=== PATIENT | female | born 1985 | race Caucasian/White ===

== ENCOUNTER 2024-02-13 14:23 | Emergency (ER) | payer SELFPAY ==
--- NOTE | ~2024-02-13 | US_ITS ---
EXAMINATION: US pelvic complete w TV DATE: 02/13/2024 18:15 INDICATION: Abdominal pain. TECHNIQUE: Multiple transabdominal and transvaginal sonographic images of the pelvis were obtained. COMPARISON: CT abdomen and pelvis 02/13/2024 FINDINGS: TRANSABDOMINAL ULTRASOUND: The uterus measures 9.6 x 3.9 x 5.2 cm. There is physiologic free fluid in the pelvis. TRANSVAGINAL ULTRASOUND: The endometrial complex measures 11 mm in thickness. There are nabothian cysts in the cervix. The rig ht ovary measures 3.8 x 2.8 x 3.6 cm. There is a 2.5 cm hemorrhagic cyst in right ovary. The left ova ry measures 2.3 x 2.3 x 1.6 cm. There is normal vascular flow in the ovaries. IMPRESSION: 1. 2.5 cm hemorrhagic cyst in right ovary. Reviewed, dictated and finalized at location A. UP / OPERATOR
--- NOTE | ~2024-02-13 | CT_ITS ---
EXAMINATION: CT abdomen pelvis w con DATE: 02/13/2024 15:58 INDICATION: Abdominal pain. TECHNIQUE: Computed tomography (CT) of the abdomen and pelvis was performed with 100 mL Omnipaque 350 intravenous contrast. Automated exposure control and iterative reconstruction technique were employe d. The dose-length product was 771.77 mGy-cm. COMPARISON: None. FINDINGS: The visualized portions of the lung bases demonstrate minimal atelectasis. No pleural effus ion. The heart size is normal. No pericardial effusion. Calcifications in the liver are consistent wi th old granulomatous disease. The gallbladder, spleen, pancreas, and adrenal glands are normal. There are cysts in the kidneys measuring up to 1.8 cm on the right. There is a 1 mm stone in right kidney. There are 4 mm and 2 mm stones in left kidney. There is diverticulosis of the colon without evidence of diverticulitis. The appendix is normal. There is a small volume of ascites. The uterus demonstrat es nabothian cysts in the cervix. There is a 2.7 cm dominant follicle in right ovary. There are no pa thologically enlarged lymph nodes. There is mild thoracic and lumbar spondylosis. IMPRESSION: 1. Small volume of pelvic ascites. Reviewed, dictated and finalized at location A. DATA ADMIN
[2024-02-13 14:35] VITALS: BP 157/95; PULSE 113; RESP 18; TEMP 36.9; O2SAT 100
--- NOTE | 2024-02-13 14:45 | ECG_ITS ---
Test Date: 2024-02-13 14:54:27 Measurements Intervals [place] Rate: 86 P: 38 CA: 108 QRS: 15 QRSD: 81 T: 26 QT: 363 QTc: 436 Interpretive Statements SINUS RHYTHM WITH SHORT CA INTERVAL No previous ECG available for comparison Electronically Signed On 02-13-2024 16:21:17 UNDERLINER by Sruthi Abreu M.D.
--- NOTE | 2024-02-13 14:48 | ED.ABDPAIN ---
HPI - Abdominal Pain General Chief Complaint: Abdominal Pain Stated Complaint: abd pain Time Seen by Provider: 02/13/24 14:40 Focused HPI: Patient is a 38-year-old female who presents to the ER with abdominal pain. She reports her symptoms started earlier today with an itch, numbness and tingling in her hands. Patient reports she became panicky after GENERAL: Well-appearing, well-nourished, and in no acute distress. HEAD: Normocephalic, atraumatic. CHEST: Clear to auscultation. ?No respiratory distress. HEART: Regular rate and rhythm.? NEURO: ?Alert and oriented x3. Patient screened in triage and initial orders placed.? ?Additional care and disposition to be based upon?diagnostic testing and treatment. Related Data Allergies Allergy/AdvReac Type Severity Reaction Status Date / Time No Known Allergies Allergy Verified 02/13/24 14:42 Course Vital Signs Vital signs: Vital Signs Temperature 36.9 C 02/13/24 14:35 Pulse Rate 113 H 02/13/24 14:35 Respiratory Rate 18 02/13/24 14:35 Blood Pressure 157/95 H 02/13/24 14:35 Pulse Oximetry 100 02/13/24 14:35 Oxygen Delivery Room Air 02/13/24 14:35 Temperature 36.9 C 02/13/24 14:35 Pulse Rate 113 H 02/13/24 14:35 Respiratory Rate 18 02/13/24 14:35 Blood Pressure 157/95 H 02/13/24 14:35 Pulse Oximetry 100 02/13/24 14:35 Oxygen Delivery Room Air 02/13/24 14:35 Discharge Plan Discharge Instructions: Antibiotic Form Patient Language: Greenlandic Follow-up/Referrals: PHYSICIAN,CONSTRUCTION SUPERINTENDENT [Primary Care Provider] -
[2024-02-13 15:01] LABS: BEDSIDEPREGUCG Negative (Negative)
[2024-02-13 15:22] LABS: Lactic Acid Reflex 1.2 mmol/L (0.7-2.0)
[2024-02-13 15:28] LABS: Basophils Percent Auto 0.2 % (0.2-1.2); Eosinophils Percent Auto 0.1 % (0-4.4); Hematocrit 43.4 % (37.0-47.0); Hemoglobin 14.6 g/dL (12.0-15.0); Immature Granulocyte Absolute 0.09 K/mm3 (0.00-0.031); Immature Granulocyte Percent A 0.5 % (0-0.5); Lymphocytes Absolute Auto 1.95 K/mm3 (0.9-3.2); Lymphocytes Percent Auto 11.2 % (18.3-44.2); Mean Corpuscular HGB Conc 33.6 g/dl (32-36); Mean Corpuscular Hemoglobin 30.8 pg (26-34); Mean Corpuscular Volume 91.6 fl (80-100); Mean Platelet Volume 10.2 fl (7.4-10.4); Monocytes Absolute Auto 0.5 K/mm3 (0.1-0.6); Monocytes Percent Auto 3.1 % (2.6-8.5); Neutrophils Absolute Auto 14.8 K/mm3 (1.3-6.7); Neutrophils Percent Auto 84.9 % (45.5-73.1); Platelet Count Result 304 k/mm3 (150-375); Red Blood Count 4.74 M/mm3 (4.2-5.4); Red Cell Distribution Width 12.3 % (11.5-14.5); White Blood Count 17.5 K/mm3 (4.5-10.0)
[2024-02-13 15:34] LABS: Troponin I < 0.012 ng/mL (0.000-0.034)
[2024-02-13 15:35] LABS: INR 0.9; Prothrombin Time 12.5 Seconds (11.1-14.7)
[2024-02-13 15:36] LABS: Partial Thromboplastin Time 26.2 Seconds (22.3-36.8)
[2024-02-13 15:39] LABS: Alanine Aminotransferase 31 U/L (6-35); Albumin Level 4.6 g/dL (3.5-5.1); Alkaline Phosphatase 87 U/L (38-126); Anion Gap 7 mmol/L (4-12); Aspartate Amino Transferase 35 U/L (14-36); Bilirubin,Total 0.8 mg/dL (0.2-1.3); Blood Urea Nitrogen 9 mg/dL (7-17); Calcium 9.2 mg/dL (8.4-10.2); Carbon Dioxide 23 mmol/L (22-30); Chloride 105 mmol/L (98-107); Estimated CRCL calculation 130 ml/min; Estimated Glomerular Filt Rate > 60; Glucose 112 mg/dL (65-110); Potassium 3.8 mmol/L (3.4-5.0); Sodium 135 mmol/L (137-145)
[2024-02-13 15:44] LABS: Lipase 129 U/L (23-300)
[2024-02-13 16:15] LABS: Add Urine Microscopic? YES; Appearance Urine Clear (Clear); Bacteria Urine 1+ /hpf; Bilirubin Urine Negative (Negative); Blood Urine Negative (Negative); Color Urine Dark Yellow (Yellow); Glucose Urine UA Negative (Negative); Ketones Urine 1+ mg/dL (Negative); Leukocyte Esterase Ur Negative LEU/UL (Negative); Nitrate Urine Negative (Negative); Non Pathogenic Casts 0-2; Protein Urine 1+ mg/dL (Negative); RBC Urine 0-2 /hpf (0-2); Specific Grav Ur 1.023 (1.001-1.035); Squamous Epithelial Cell Urine Few /hpf (Few); Urobilinogen Urine 0.2 mg/dL (<2.0); WBC Urine 0-5 /hpf (0-3); pH Urine 5.5 (5.0-9.0)
--- NOTE | 2024-02-13 17:17 | ED.ABDPAIN ---
HPI - Abdominal Pain General Chief Complaint: Abdominal Pain Stated Complaint: abd pain Time Seen by Provider: 02/13/24 14:40 Source: patient Mode of arrival: ambulatory Limitations: no limitations History of Present Illness HPI narrative: This is a 38-year-old female who presents to the ED for chief complaint of lower abdominal pain that started this morning. The pain was associated with tingling of the extremities and episodes of nausea with vomiting. Reports that the pain started lower and is now more periumbilical. She states that she has had similar pains in the past with ovarian cyst rupture. Denies fevers, chills, diarrhea, GI bleeding symptoms, urinary symptoms, flank pain, syncope or lightheadedness. Related Data Allergies Allergy/AdvReac Type Severity Reaction Status Date / Time No Known Allergies Allergy Verified 02/13/24 14:42 Review of Systems Review of Systems: All systems as dictated in HPI Exam Narrative: GENERAL: Well-appearing, well-nourished, and in no acute distress. HEAD: Normocephalic, atraumatic. EYES: PERRLA and EOMI. ENT: Nares clear, no rhinorrhea or epistaxis. Mucous membranes moist. Oropharynx without tonsillar hypertrophy exudate or other lesions. NECK: Supple. No adenopathy or masses. CHEST: No respiratory distress. Clear to auscultation. No wheezes rales or rhonchi HEART: Regular rate and rhythm. No murmur heard. Normal peripheral pulses. ABDOMEN: Mild left lower quadrant tenderness. Soft, otherwise nontender, nondistended, normal active bowel sounds. Negative flank tenderness bilaterally MSK: Normal range of motion. No edema. SKIN: Warm, dry, no rash. NEURO: Alert and oriented x4. No focal deficits. PSYCH: Normal mood and affect. Course Vital Signs Vital signs: Vital Signs Temperature 98.4 F 02/13/24 14:35 Pulse Rate 113 H 02/13/24 14:35 Respiratory Rate 18 02/13/24 14:35 Blood Pressure 157/95 H 02/13/24 14:35 Pulse Oximetry 100 02/13/24 14:35 Oxygen Delivery Room Air 02/13/24 14:35 Temperature 98.2 F 02/13/24 20:30 Pulse Rate 79 02/13/24 20:30 Respiratory Rate 20 02/13/24 20:30 Blood Pressure 134/87 02/13/24 20:30 Pulse Oximetry 98 02/13/24 20:30 Oxygen Delivery Room Air 02/13/24 14:35 MDM - Abdominal Pain MDM Narrative Medical decision making narrative: This is a 38-year-old female who presents to the ED for chief complaint of lower abdominal pain with N/V.. Vitals show initial tachycardia but otherwise normal. Exam is remarkable for lower abdominal tenderness. Patient was initially seen in triage by provider and workup was started there. Lab work showing showing elevated white count of 17.5, suspect acute phase reaction with vomiting. CMP unremarkable. Troponin normal. Urinalysis unremarkable other than slight dehydration. Ultrasound transvaginal: IMPRESSION: 1. 2.5 cm hemorrhagic cyst in right ovary. CT abdomen pelvis with IV contrast: IMPRESSION: 1. Small volume of pelvic ascites. Overall presentation is most likely consistent with ruptured hemorrhagic ovarian cyst. She was given Toradol which did have some initial relief however still was having pain some morphine was given. On re-evaluation she is feeling better. Patient will be discharged in stable condition. Supportive measures discussed and return precautions given. Patient is understanding and agreeable with plan for discharge with PCP follow-up. Differential Diagnosis Differential diagnosis: Likely abdominal pain, diverticulitis, gastroenteritis, pancreatitis, small bowel obstruction and other (Ovarian torsion) Lab Data 02/13/24 15:01 02/13/24 15:01 Labs: Lab Results 02/13/24 02/13/24 Range/Units 15:00 15:01 WBC 17.5 H (4.5-10.0) K/mm3 RBC 4.74 (4.2-5.4) M/mm3 Hgb 14.6 (12.0-15.0) g/dL Hct 43.4 (37.0-47.0) % MCV 91.6 (80-100) fl MCH 30.8 (26-34) pg MCHC 33.6 (32-36) g/dl RDW 12.3 (11.5-14.5) % Plt Count 304 (150-375) k/mm3 MPV 10.2 (7.4-10.4) fl Immature Gran % (Auto) 0.5 (0-0.5) % Neut % (Auto) 84.9 H (45.5-73.1) % Lymph % (Auto) 11.2 L (18.3-44.2) % [place] % (Auto) 3.1 (2.6-8.5) % Eos % (Auto) 0.1 (0-4.4) % Baso % (Auto) 0.2 (0.2-1.2) % Lymph # (Auto) 1.95 (0.9-3.2) K/mm3 [place] # (Auto) 0.5 (0.1-0.6) K/mm3 Eos # (Auto) 0.0 (0-0.3) K/mm3 Baso # (Auto) 0.0 (0.0-0.1) K/mm3 Abs Immat Gran (auto) 0.09 H (0.00-0.031) K/mm3 Absolute Neuts (auto) 14.8 H (1.3-6.7) K/mm3 Absolute Nucleated RBC 0.000 (0.0-0.012) K/mm3 Nucleated RBC % 0.0 (0.0-0.2) % PT 12.5 (11.1-14.7) Seconds INR 0.9 APTT 26.2 (22.3-36.8) Seconds Sodium 135 L (137-145) mmol/L Potassium 3.8 (3.4-5.0) mmol/L Chloride 105 (98-107) mmol/L Carbon Dioxide 23 (22-30) mmol/L Anion Gap 7 (4-12) mmol/L BUN 9 (7-17) mg/dL Creatinine 0.60 L (0.7-1.0) mg/dL Estim Creat Clear Calc 130 ml/min Estimated GFR > 60 (59 - ) Glucose 112 H (65-110) mg/dL Lactic Acid 1.2 (0.7-2.0) mmol/L Calcium 9.2 (8.4-10.2) mg/dL Total Bilirubin 0.8 (0.2-1.3) mg/dL AST 35 (14-36) U/L ALT 31 (6-35) U/L Alkaline Phosphatase 87 (38-126) U/L Troponin I < 0.012 (0.000-0.034) ng/mL Total Protein 8.0 (6.3-8.2) g/dL Albumin 4.6 (3.5-5.1) g/dL Lipase 129 (23-300) U/L Urine Color Dark yellow (Yellow) Urine Appearance Clear (Clear) Urine pH 5.5 (5.0-9.0) Ur Specific Leopold 1.023 (1.001-1.035) Urine Protein 1+ H (Negative) mg/dL Urine Glucose (UA) Negative (Negative) mg/dL Urine Ketones 1+ H (Negative) mg/dL Ur Blood (Man) Negative (Negative) Urine Nitrate Negative (Negative) Urine Bilirubin Negative (Negative) Urine Urobilinogen 0.2 (<2.0) mg/dL Leukocyte Esterase Rfl Negative (Negative) DENNIS/UL Urine RBC 0-2 (0-2) /hpf Urine WBC 0-5 (0-3) /hpf Ur Squamous Epith Cells Few (Few) /hpf Urine Bacteria 1+ H /hpf Urine Casts 0-2 POC Urine HCG, Qual Negative (Negative) Imaging Data Radiologist's impression: ITS Impressions Abdomen/Pelvis CT 02/13/24 15:59 IMPRESSION: 1. Small volume of pelvic ascites. Pelvic/Transvag US 02/13/24 18:19 IMPRESSION: 1. 2.5 cm hemorrhagic cyst in right ovary. Discharge Plan Discharge Clinical Impression: Hemorrhagic cyst of ovary Patient Disposition: Home, Self-Care Condition: Stable Instructions: Antibiotic Form Additional Instructions: Your evaluated in the ER for abdominal pain. Your workup today does show a bleeding ovarian cyst. Please follow-up closely with Ob regarding this issue. Take Toradol for pain control. Pain should start to wean off the next 48 hours. Not take other NSAIDs with Toradol. You can take Tylenol with Toradol. If you have any new or worsening symptoms please return to the ER for further evaluation. Patient Language: Swazi Prescriptions: New ketorolac 10 mg tablet 10 mg PO Q8H PRN (Reason: pain) Qty: 15 0RF Rx Instructions: maximum total duration of 5 days from all oral, intranasal, or parenteral formulations Follow-up/Referrals: PHYSICIAN,METROLOGY MANAGER [Primary Care Provider] - Stand Alone Forms: Work/School Release IP Time of Disposition: 18:46
--- NOTE | 2024-02-13 17:56 | PC.NURSE ---
Pt. still at imaging. Will administer ordered meds when pt. returns.
[2024-02-13] MEDS: KETOROLAC 30 MG/ML VIAL (*BKC) IV PUSH (18:10)
[2024-02-13] MEDS: ONDANSETRON INJ 4 MG/2 ML VIAL IV PUSH (18:10)
[2024-02-13 18:14] VITALS: BP 152/87; PULSE 76; RESP 16; O2SAT 99
[2024-02-13] MEDS: ACETAMINOPHEN 500 MG TABLET 1000 MG PO (19:54)
[2024-02-13] MEDS: MORPHINE SULFATE (*CRX) 4 MG/ML INJ IV PUSH (19:55)
[2024-02-13 20:30] VITALS: BP 134/87; PULSE 79; RESP 20; TEMP 36.8; O2SAT 98
== END 2024-02-13 20:30 | disposition home or self-care (01) ==
PROVIDERS: Registered Nurse; Emergency Provider Physician Assistant
DX: N83.201 Unspecified ovarian cyst, right side (principal)
CPT/HCPCS: 36415; 74177; 76830; 76856; 80053; 81001; 81025; 83605; 83690; 84484; 85025; 85610; 85730; 93005; 96374; 96375; 99284; A9270; J1885; J2270; J2405; Q9967

== ENCOUNTER 2024-08-29 11:20 | Emergency (ER) | payer SELFPAY ==
--- NOTE | ~2024-08-29 | XR_ITS ---
EXAMINATION: XR chest 2V DATE: 08/29/2024 11:53 INDICATION: Upper respiratory tract infection. Right-sided chest pain. TECHNIQUE: PA and lateral views of the chest were obtained. COMPARISON: None FINDINGS: The lungs are clear with no focal airspace opacities, pulmonary edema, pleural effusion or pneumothor ax. The cardiomediastinal silhouette is normal. Visualized bones and soft tissues are unremarkable. IMPRESSION: 1. Normal chest radiograph. Reviewed, dictated and finalized at location B. IMPRESSION: 1. Normal chest radiograph.
[2024-08-29 11:22] VITALS: BP 156/107; PULSE 84; RESP 20; TEMP 36.8; O2SAT 100
--- OUTSIDE RECORDS SUMMARY | 2024-08-29 11:24 | XMS_ITS | Clinical Summary ---
Author Organization [facility] Address [address] [place] [address] Care Team Providers Care Black Studies Professor Name Role Phone No, Physician Primary Care Provider [phone] Allergies No known active allergies Social History Tobacco Use Types Packs/Day Years Used Date Smoking Tobacco: Never Assessed Personal Safety Answer Date Recorded Getting School Help Needed Not on file 06/10 Comments Unknown Sex and Gender Information Value Date Recorded Sex Assigned at Not on file Legal Sex Female 12:50 PM CDT Gender Identity Not on file Sexual Orientation Not on file Last Filed Vital Signs Vital Sign Reading Time Taken Comments Blood Pressure 127/89 05/24/2022 3:26 PM CDT Pulse 92 05/24/2022 3:26 PM CDT Temperature 36.7 C (98.1 F) 05/24/2022 3:26 PM CDT Respiratory Rate 18 05/24/2022 3:26 PM CDT Oxygen Saturation 99% 05/24/2022 3:26 PM CDT Inhaled Oxygen Concentration - - Weight 91.6 kg (201 lb 15.1 oz) 023 12:54 PM CDT Height 170.2 cm (5' 7) 05/24/2022 12:5 4 PM CDT Body Mass Index 31.63 05/24/2022 12:54 PM CDT Plan of Treatment Health Maintenance Due Date Last Done Comments Cervical Cancer Screening 1987 Depression Screening 1987 Hepatitis C Screening 1987 DTaP/Tdap/Td Vaccine (1 - Tdap) 06/11/1998 Varicella Vaccines (1 of 2 - 13+ 2-dose series) 06/11/2000 Hepatitis B Screening 06/11/2005 Regular Well Visit/Exam 18-64 06/11/2005 Influenza Vaccine (Season Ended) 2024 HPV Vaccines Aged Out No longer eligi ble based on patient's age to complete this topic Pneumococcal vaccine <65 Aged Out No longer eligible based on patient's age to complete this topic Care Teams Black Studies Professor Relationship Specialty Start Date End Date No, Physician PCP - General 05/24/22
--- OUTSIDE RECORDS SUMMARY | 2024-08-29 11:24 | XMS_ITS | Referral Summary ---
Author Organization [facility] Address [address] [place] [address] Care Team Providers Care Sustainability Analyst Name Role Phone No, Physician Primary Care Provider [phone] Allergies No known active allergies Social History [...] 05/24/2022 12:54 PM CDT Plan of Treatment Not on file Care Teams Sustainability Analyst Relationship Specialty Start Date End Date Bryanna Physician PCP - General 05/24/22
--- NOTE | 2024-08-29 12:19 | ED_ITS ---
HPI - URI/Sore Throat General Chief Complaint: Upper Respiratory Infection Stated Complaint: sore throat Time Seen by Provider: 08/29/24 12:08 Source: patient Mode of arrival: ambulatory Limitations: no limitations History of Present Illness HPI Narrative: 39 years old white female came to the ED complaining sore throat, nasal and postnasal discharge, dry cough started 10 days ago. She she denies sick sick contact. She denies any fever, chills, nausea, vomiting or chest. Patient works in public Patient been using amoxicillin 500 mg once a day for the last 7 days, left over antibiotic Related Data Allergies Allergy/AdvReac Type Severity Reaction Status Date / Time No Known Allergies Allergy Verified 02/13/24 14:42 Review of Systems Review of Systems: All systems reviewed & are unremarkable except as noted in HPI and below Exam Narrative: General appearance: Well-developed, well-nourished Skin: Normal color Head: Normocephalic, nontraumatic Eyes: Clear conjunctiva ENT: Oropharynx normal, ears normal, nose normal Neck: Supple, nontender Chest and respiratory: Airway patent, no respiratory distress, no accessory muscle use Heart: Regular rate/rhythm Abdomen: Soft, nontender, no organomegaly, quiet bowel sounds Vascular: Normal peripheral pulses, normal capillary refill. Musculoskeletal: Normal range of motion, nontender back Neurologic: Alert and oriented ?3, CASINO INVESTIGATOR is normal as tested, no gross motor deficit Course Vital Signs Vital signs: Vital Signs Temperature 36.8 C 08/29/24 11:22 Pulse Rate 84 08/29/24 11:22 Respiratory Rate 20 08/29/24 11:22 Blood Pressure 156/107 H 08/29/24 11:22 Pulse Oximetry 100 08/29/24 11:22 Oxygen Delivery Room Air 08/29/24 11:22 Temperature 36.8 C 08/29/24 11:22 Pulse Rate 84 08/29/24 11:22 Respiratory Rate 20 08/29/24 11:22 Blood Pressure 156/107 H 08/29/24 11:22 Pulse Oximetry 100 08/29/24 11:22 Oxygen Delivery Room Air 08/29/24 11:22 MDM - URI/Sore Throat MDM Narrative Medical decision making narrative: Differential diagnosis include strep throat, sinusitis, upper respiratory viral infection, secondary bacterial infection, bronchitis Chest x-ray showed no acute abnormality Patient tested negative for COVID flu and RSV Patient tested negative for strep throat Diagnosis upper respiratory infection, Discharged on doxycycline, Flonase nasal spray and benzonatate Differential Diagnosis Differential diagnosis: Likely upper respiratory infection, sinusitis, viral infection, bronchitis, influenza and pharyngitis Lab Data Labs: Lab Results 08/29/24 08/29/24 Range/Units 12:42 12:43 Influenza A (RT-PCR) Negative (Negative) Influenza B (RT-PCR) Negative (Negative) RSV (RT-PCR) Negative (Negative) SARS-CoV-2 RNA (RT-PCR) Negative (Negative) Group A Strep (PCR) Not detected (Negative) Imaging Data Radiologist's impression: Impressions Chest X-Ray 08/29/24 11:58 IMPRESSION: 1. Normal chest radiograph. Critical Care Time Critical Care Time Critical Care Time: No Discharge Plan Discharge Clinical Impression: Acute upper respiratory infection Patient Disposition: Home Condition: Stable Instructions: Antibiotic Form, Upper Respiratory Infection (ED) Additional Instructions: Return if symptoms are worsening , call your family physician for appointment, take Tylenol, ibuprofen as as needed for aches and pain, continue home medications. Patient Language: Maltese Prescriptions: New doxycycline hyclate 100 mg capsule 100 mg PO BID Qty: 20 0RF fluticasone propionate [Flonase Allergy Relief] 50 mcg/actuation spray,suspension 2 spray intranasal DAILY Qty: 36.4 0RF Rx Instructions: administer into each nostril benzonatate 200 mg capsule 200 mg PO TID PRN (Reason: cough) Qty: 21 0RF No Action ketorolac 10 mg tablet 10 mg PO Q8H PRN (Reason: pain) Qty: 15 0RF Rx Instructions: maximum total duration of 5 days from all oral, intranasal, or parenteral formulations Follow-up/Referrals: PHYSICIAN,GAS PLANT TECHNICIAN [Non-Staff] - Harjeet Bone MD [Physician] - 09/02/24 Stand Alone Forms: Work/School Release IP
--- OUTSIDE RECORDS SUMMARY | 2024-08-29 12:22 | XMS_ITS | Referral Summary ---
Author Organization [facility] Address [address] [place] [address] Care Team Providers Care Document Control Assistant Name Role Phone No, Physician Primary Care Provider [phone] Allergies No known active allergies Social History [...] of Treatment Not on file Care Teams Document Control Assistant Relationship Specialty Start Date End Date Bryanna Physician PCP - General 05/24/22
--- OUTSIDE RECORDS SUMMARY | 2024-08-29 12:22 | XMS_ITS | Clinical Summary ---
Author Organization [facility] Address [address] [place] [address] Care Team Providers Care Security Police Name Role Phone No, Physician Primary Care Provider [phone] Allergies No known active allergies Social History [...] age to complete this topic Care Teams Security Police Relationship Specialty Start Date End Date No, Physician PCP - General 05/24/22
[2024-08-29 13:11] LABS: Strep Group A RT-PCR NOT DETECTED (Negative)
[2024-08-29 13:26] LABS: Influenza A QL RT-PCR Negative (Negative); Influenza B QL RT-PCR Negative (Negative); RSV RNA, RT-PCR Negative (Negative); SARS-CoV-2 RNA PCR Negative (Negative)
== END 2024-08-29 14:11 | disposition home or self-care (01) ==
PROVIDERS: Physician Assistant; Emergency Provider Emergency Medicine
DX: J06.9 Acute upper respiratory infection, unspecified (principal); Z20.822 Contact with and (suspected) exposure to COVID-19
CPT/HCPCS: 71046; 87637; 87651; 99283

== ENCOUNTER 2024-12-30 08:37 | Emergency (ER) | payer SELFPAY ==
--- NOTE | ~2024-12-30 | CT_ITS ---
CT abdomen pelvis w con Clinical History: abd pain, N/V/D, brbpr . Comparison: CT abdomen and pelvis 02/13/2024 Technique: Axial images lung bases to symphysis pubis IV contrast information not listed in PACS Coronal, sagittal reformats CT images acquired with automatic exposure control for dose reduction DLP: 837 mGy-cm Findings: Lung bases: Clear. Visualized heart and pericardium: Unremarkable. Liver: Steatosis. Enlarged Gallbladder: Unremarkable. Spleen: Unremarkable. Pancreas: Unremarkable. Adrenal glands: Unremarkable. Kidneys: Right kidney- No hydronephrosis. 1 mm stone. Several cysts are Left kidney- No hydronephrosis. 4 mm stone. Distal esophagus/stomach: Unremarkable. Small bowel loops: Normal caliber and wall thickness. Proximal duodenal diverticulum. Mild distal loop submucosal fatty deposition. Colon: Diverticula. Normal caliber and wall thickness. Normal RLQ appendix. Mild diffuse submucosal fatty deposition. Nodes: No enlarged nodes. Peritoneum: No ascites. No free air. Urinary bladder: Unremarkable. Uterus: Unremarkable. Nabothian cysts. Adnexa: No masses or Bones: No acute bony abnormality. Soft tissues: Unremarkable. Aorta: No aneurysm or dissection. IVC: Unremarkable. Main portal vein/SMV/splenic vein: Patent. IMPRESSION: 1. Enteric and colonic submucosal fatty deposition, which can be seen with inflammatory bowel disease, chronic steroid use, or merely idiopathic. 2. Otherwise no acute abnormality. 3. Additional findings as above. Reviewed, dictated and finalized at location . [facility] IMPRESSION: 1. Enteric and colonic submucosal fatty deposition, which can be seen with inf lammatory bowel disease, chronic steroid use, or merely idiopathic. 2. Otherwise no acute abnormality. 3. Additional findings as above.
--- OUTSIDE RECORDS SUMMARY | 2024-12-30 08:50 | XMS_ITS | Clinical Summary ---
Author Organization [facility] Address [address] [place] [address] Care Team Providers Care Associate Sales Manager Name Role Phone No, Physician Primary Care Provider [phone] Allergies No known active allergies Social History [...] Screening 06/11/2005 Regular Well Visit/Exam 18-64 06/11/2005 HPV Vaccines (1 - 3-dose SCD M series) 06/11/2014 Influenza Vaccine (#1) 2024 Pneumococcal vaccine <65 Aged Out No longer eligible based on patient's age to complete this topic Care Teams Associate Sales Manager Relationship Specialty Start Date End Date No, Physician PCP - General 05/24/22
[2024-12-30 09:01] VITALS: PULSE 94; RESP 14; TEMP 36.8; O2SAT 100
[2024-12-30] MEDS: ONDANSETRON INJ 4 MG/2 ML VIAL IV PUSH (09:16)
[2024-12-30 09:17] LABS: BEDSIDEPREGUCG Negative (Negative)
--- NOTE | 2024-12-30 09:18 | ED_ITS ---
HPI - Abdominal Pain General Chief Complaint: Abdominal Pain Stated Complaint: abdominal pain with vomiting. blood in stool Time Seen by Provider: 12/30/24 08:41 Source: patient Mode of arrival: ambulatory Limitations: no limitations History of Present Illness HPI narrative: Patient is a 39-year-old female who presents the ED with report of N/V/D. Patient reports over the past 3 days, she has been having nausea, vomiting, diarrhea. Reports she has had difficulty keeping down food and drink. Reports pain throughout her lower abdomen. Reports she has had bright red blood in her stool. States at times she has been only passing blood. She has some rectal pain/burning with having a bowel movement. Denies known hx of hemorrhoids. Denies history of similar symptoms. Denies fevers. She is not on any anticoagulation. Related Data Allergies Allergy/AdvReac Type Severity Reaction Status Date / Time No Known Allergies Allergy Verified 12/30/24 09:16 Review of Systems 2 Review of Systems: All systems reviewed & are unremarkable except as noted in HPI. All systems reviewed & are unremarkable except as noted in HPI and below Exam 2 Narrative: GENERAL: Well appearing, well-nourished, non-toxic, in no acute distress. HEAD: Normocephalic, atraumatic. RESPIRATORY: Airway patent, respirations nonlabored. Clear to auscultation bilaterally, no rales, rhonchi, wheezing. CARDIOVASCULAR: Regular rate and rhythm without murmurs, rubs, or gallops. ABDOMINAL: Soft, mild diffuse tenderness throughout her lower abdomen, nondistended. Normoactive BS. MUSCULOSKELETAL: Moves all extremities. No gross deformities. SKIN: Warm, dry, normal color. NEURO: A&O X3. Speech clear. Cranial nerves II-XII grossly intact. Steady gait. No ataxic movements. PSYCHIATRIC: Appropriate mood and affect. Normal interaction. Course Vital Signs Vital signs: Vital Signs Temperature 98.3 F 12/30/24 09:01 Pulse Rate 94 12/30/24 09:01 Respiratory Rate 14 12/30/24 09:01 Pulse Oximetry 100 12/30/24 09:01 Oxygen Delivery Room Air 12/30/24 09:01 Temperature 98.3 F 12/30/24 09:01 Pulse Rate 84 12/30/24 11:15 Respiratory Rate 18 12/30/24 11:15 Blood Pressure 147/89 H 12/30/24 11:15 Pulse Oximetry 97 12/30/24 11:15 Oxygen Delivery Room Air 12/30/24 09:01 MDM - Abdominal Pain MDM Narrative Medical decision making narrative: Patient presented to ED with 3 day history of N/V/D, bright red blood per rectum. Vital signs stable upon arrival. Patient in no acute distress. No evidence of hemodynamic instability. Cbc with blood cell count of 3.6. H&H is stable. Consistent w/ previous records. CMP w/ slight hypokalemia, given oral replacement. Stable kidney function. Mag within normal range. Slight elevation of liver enzymes. Normal total bilirubin. Normal lipase. UA without evidence of infection. CT scan of abdomen/pelvis was obtained hepatic steatosis, hepatomegaly, as well as: 1. Enteric and colonic submucosal fatty deposition, which can be seen with inflammatory bowel disease, chronic steroid use, or merely idiopathic. Discussed these findings with Dr. Amin, GI, advised f/u in office outpatient for colonoscopy. Patient feeling improved with supportive therapy. Able to tolerate p.o. intake. Feel she is safe for discharge home. Discussed high likelihood of gastroenteritis causing current symptoms. Will discharge with Natasha Castellanos for home use. Discussed close follow-up with GI. Discussed dietary modifications and strict return precautions. Patient in agreement with plan, although upset that she is not receiving GI evaluation today. Advised these are not emergent test at this time. Discharged in stable condition. Medical Records Attestation: I reviewed the patient's medical records. Lab Data Attestation: I reviewed the patient's lab results. 12/30/24 09:10 12/30/24 09:10 Labs: Lab Results 12/30/24 12/30/24 Range/Units 09:10 09:15 WBC 3.6 L (4.5-10.0) K/mm3 RBC 4.88 (4.2-5.4) M/mm3 Hgb 14.0 (12.0-15.0) g/dL Hct 42.9 (37.0-47.0) % MCV 87.9 (80-100) fl MCH 28.7 (26-34) pg MCHC 32.6 (32-36) g/dl RDW 14.4 (11.5-14.5) % Plt Count 193 (150-375) k/mm3 MPV 10.4 (7.4-10.4) fl Immature Gran % (Auto) 0.3 (0-0.5) % Neut % (Auto) 56.9 (45.5-73.1) % Lymph % (Auto) 26.4 (18.3-44.2) % Patrick % (Auto) 14.3 H (2.6-8.5) % Eos % (Auto) 1.6 (0-4.4) % Baso % (Auto) 0.5 (0.2-1.2) % Lymph # (Auto) 0.96 (0.9-3.2) K/mm3 Patrick # (Auto) 0.5 (0.1-0.6) K/mm3 Eos # (Auto) 0.1 (0-0.3) K/mm3 Baso # (Auto) 0.0 (0.0-0.1) K/mm3 Abs Immat Gran (auto) 0.01 (0.00-0.031) K/mm3 Absolute Neuts (auto) 2.1 (1.3-6.7) K/mm3 Absolute Nucleated RBC 0.000 (0.0-0.012) K/mm3 Nucleated RBC % 0.0 (0.0-0.2) % Sodium 133 L (137-145) mmol/L Potassium 3.3 L (3.4-5.0) mmol/L Chloride 97 L (98-107) mmol/L Carbon Dioxide 26 (22-30) mmol/L Anion Gap 10 (4-12) mmol/L BUN 6 L (7-17) mg/dL Creatinine 0.73 (0.7-1.0) mg/dL Estim Creat Clear Calc 103 ml/min Estimated GFR > 60 (59 - ) Glucose 106 (65-110) mg/dL Calcium 9.3 (8.4-10.2) mg/dL Magnesium 1.8 (1.6-2.3) mg/dL Total Bilirubin 0.5 (0.2-1.3) mg/dL AST 110 H (14-36) U/L ALT 85 H (6-35) U/L Alkaline Phosphatase 91 (38-126) U/L Total Protein 8.1 (6.3-8.2) g/dL Albumin 4.6 (3.5-5.1) g/dL Lipase 257 (23-300) U/L Urine Color Dark yellow (Yellow) Urine Appearance Turbid H (Clear) Urine pH 5.5 (5.0-9.0) Ur Specific [place] 1.028 (1.001-1.035) Urine Protein 1+ H (Negative) mg/dL Urine Glucose (UA) Negative (Negative) mg/dL Urine Ketones Trace H (Negative) mg/dL Ur Blood (Man) Negative (Negative) Urine Nitrate Negative (Negative) Urine Bilirubin 1+ H (Negative) Urine Urobilinogen 1.0 (<2.0) mg/dL Leukocyte Esterase Rfl Trace H (Negative) DENNIS/UL Urine RBC 0-2 (0-2) /hpf Urine WBC 0-5 (0-3) /hpf Ur Squamous Epith Cells Many H (Few) /hpf Urine Bacteria 1+ H /hpf Urine Casts 0-2 Urine Mucus Present /lpf POC Urine HCG, Qual Negative (Negative) Imaging Data Attestation: I personally reviewed and interpreted this imaging study as follows: Radiologist's impression: ITS Impressions Abdomen/Pelvis CT 12/30/24 10:06 IMPRESSION: 1. Enteric and colonic submucosal fatty deposition, which can be seen with inflammatory bowel disease, chronic steroid use, or merely idiopathic. 2. Otherwise no acute abnormality. 3. Additional findings as above. Discharge Plan Discharge Clinical Impression: Gastroenteritis, BRBPR (bright red blood per rectum) Patient Disposition: Home Condition: Stable Instructions: Antibiotic Form, Rectal Bleeding (ED), Gastroenteritis (ED) Additional Instructions: Utilize zofran as needed for further nausea. Recommend Tylenol, Bentyl as needed for abdominal discomfort. Increase fluid intake. Recommend electrolyte rich fluids, gatorade, pedialyte, body armour. Recommend clear liquids or bland diet until symptoms improve, such as bananas, rice, applesauce, toast, or crackers. Recommend follow-up with GI for further evaluation and future colonoscopy. Call office to make appointment. Return to the ED if you experience worsening or severe symptoms, unable to keep down food or drink, severe pain, persistent fevers, worsening rectal bleeding, vomiting blood, or any other symptoms of concern. Patient Language: Turkmen Prescriptions: New dicyclomine 20 mg tablet 20 mg PO TID PRN (Reason: Abdominal Discomfort) Qty: 15 0RF ondansetron 4 mg tablet,disintegrating 4 mg PO Q8H PRN (Reason: nausea and vomiting) Qty: 15 0RF No Action ketorolac 10 mg tablet 10 mg PO Q8H PRN (Reason: pain) Qty: 15 0RF Rx Instructions: maximum total duration of 5 days from all oral, intranasal, or parenteral formulations doxycycline hyclate 100 mg capsule 100 mg PO BID Qty: 20 0RF fluticasone propionate [Flonase Allergy Relief] 50 mcg/actuation spray,suspension 2 spray intranasal DAILY Qty: 36.4 0RF Rx Instructions: administer into each nostril benzonatate 200 mg capsule 200 mg PO TID PRN (Reason: cough) Qty: 21 0RF Follow-up/Referrals: Terrance Amin MD [Physician, Gastroenterology] Referral Note: GI UNKNOWN,DOCTOR [Primary Care Provider] Time of Disposition: 11:04
[2024-12-30 09:19] LABS: Hematocrit 42.9 % (37.0-47.0); Hemoglobin 14.0 g/dL (12.0-15.0); Immature Granulocyte Percent A 0.3 % (0-0.5); Lymphocytes Absolute Auto 0.96 K/mm3 (0.9-3.2); Mean Corpuscular HGB Conc 32.6 g/dl (32-36); Mean Corpuscular Hemoglobin 28.7 pg (26-34); Mean Corpuscular Volume 87.9 fl (80-100); Nucleated Red Blood Cells Absolute Auto 0.000 K/mm3 (0.0-0.012); Nucleated Red Blood Cells Perc 0.0 % (0.0-0.2); Platelet Count Result 193 k/mm3 (150-375); Red Blood Count 4.88 M/mm3 (4.2-5.4); White Blood Count 3.6 K/mm3 (4.5-10.0)
[2024-12-30] MEDS: FAMOTIDINE 20 MG/2 ML VIAL IV PUSH (09:28)
[2024-12-30] MEDS: MORPHINE SULFATE (*CRX) 4 MG/ML INJ IV PUSH (09:29)
[2024-12-30] MEDS: SODIUM CHLORIDE 0.9% IV 1,000 ML 999 ML IV CONT (09:29)
[2024-12-30 09:39] LABS: Alanine Aminotransferase 85 U/L (6-35); Albumin Level 4.6 g/dL (3.5-5.1); Alkaline Phosphatase 91 U/L (38-126); Anion Gap 10 mmol/L (4-12); Aspartate Amino Transferase 110 U/L (14-36); Bilirubin,Total 0.5 mg/dL (0.2-1.3); Blood Urea Nitrogen 6 mg/dL (7-17); Calcium 9.3 mg/dL (8.4-10.2); Carbon Dioxide 26 mmol/L (22-30); Chloride 97 mmol/L (98-107); Estimated CRCL calculation 103 ml/min; Estimated Glomerular Filt Rate > 60; Glucose 106 mg/dL (65-110); Lipase 257 U/L (23-300); Potassium 3.3 mmol/L (3.4-5.0); Sodium 133 mmol/L (137-145); Total Protein 8.1 g/dL (6.3-8.2)
[2024-12-30 09:58] LABS: Magnesium 1.8 mg/dL (1.6-2.3)
--- OUTSIDE RECORDS SUMMARY | 2024-12-30 09:58 | XMS_ITS | Clinical Summary ---
Author Organization [facility] Address [address] [place] [address] Care Team Providers Care Senior Bi Developer Name Role Phone No, Physician Primary Care Provider [phone] Allergies No known active allergies Social History [...] age to complete this topic Care Teams Senior Bi Developer Relationship Specialty Start Date End Date No, Physician PCP - General 05/24/22
[2024-12-30 10:27] LABS: Add Urine Microscopic? YES; Appearance Urine Turbid (Clear); Glucose Urine UA Negative (Negative); Leukocyte Esterase Ur Trace LEU/UL (Negative); Nitrate Urine Negative (Negative); Non Pathogenic Casts 0-2; Specific Grav Ur 1.028 (1.001-1.035)
[2024-12-30] MEDS: POTASSIUM CHLORIDE 20 MEQ ER TABLET PO (11:04)
[2024-12-30 11:06] VITALS: BP 147/89; PULSE 64; RESP 14; O2SAT 98
[2024-12-30 11:15] VITALS: BP 147/89; PULSE 84; RESP 18; O2SAT 97
== END 2024-12-30 11:16 | disposition home or self-care (01) ==
PROVIDERS: Emergency Medicine; Emergency Provider Physician Assistant
DX: K52.9 Noninfective gastroenteritis and colitis, unspecified (principal); K62.5 Hemorrhage of anus and rectum
CPT/HCPCS: 36415; 74177; 80053; 81001; 81025; 83690; 83735; 85025; 96361; 96374; 96375; 99284; A9270; J2270; J2405; J7030; Q9967

== ENCOUNTER 2024-12-31 15:48 | Emergency (ER) | payer SELFPAY ==
--- NOTE | ~2024-12-31 | CT_ITS ---
CT abdomen pelvis w con Clinical History: abdominal pain . Comparison: CT abdomen and pelvis 12/30/2024 Technique: Axial images lung bases to symphysis pubis 100 mL Omnipaque 350 Coronal, sagittal reformats CT images acquired with automatic exposure control for dose reduction DLP: 628 mGy-cm Findings: Lung bases: Clear. Visualized heart and pericardium: Unremarkable. Liver: Steatosis. Enlarged. Gallbladder: Unremarkable. Spleen: Unremarkable. Pancreas: Unremarkable. Adrenal glands: Unremarkable. Kidneys: Bilateral cysts. Right kidney- No hydronephrosis. 1 mm stone. Left kidney- No hydronephrosis. 4 mm stone. Distal esophagus/stomach: Unremarkable. Small bowel loops: Normal caliber and wall thickness. Small proximal duodenal diverticulum. Distal submucosal fatty deposition. Colon: Scattered wall thickening, most severe proximal loops. Normal RLQ appendix. Nodes: No enlarged nodes. Peritoneum: No ascites. No free air. Urinary bladder: Unremarkable. Uterus: Unremarkable. Nabothian cyst. Adnexa: No masses. Bones: No acute bony abnormality. Soft tissues: Unremarkable. Aorta: No aneurysm or dissection. IVC: Unremarkable. Main portal vein/SMV/splenic vein: Patent. IMPRESSION: 1. Colitis. Reviewed, dictated and finalized at location R. [employer] MEMBER IMPRESSION: 1. Colitis.
--- OUTSIDE RECORDS SUMMARY | 2024-12-31 16:47 | XMS_ITS | Clinical Summary ---
Author Organization [facility] Address [address] [place] [address] Care Team Providers Care Machine Tool Technician Instructor Name Role Phone No, Physician Primary Care Provider [phone] Allergies No known active allergies Social History [...] age to complete this topic Care Teams Machine Tool Technician Instructor Relationship Specialty Start Date End Date No, Physician PCP - General 05/24/22
--- NOTE | 2024-12-31 17:12 | ED_ITS ---
HPI - General Adult General Chief complaint: Nausea/Vomiting/Diarrhea <RASHAAD Rondon - Last Filed: 01/01/25 15:55> Stated complaint: n/v, and rectal bleeding for 5 days <RASHAAD Rondon - Last Filed: 01/01/25 15:55> Time Seen by Provider: 12/31/24 17:12 <RASHAAD Rondon - Last Filed: 01/01/25 15:55> Focused HPI: 39 year old female presenting with vomiting and pooping blood for the last few days. States she was seen yesterday and referred to GI. States after she went home the pain became significantly worse. Now she is feeling increasingly weak and worse pain. States subjective fever/chills. GENERAL: Well-nourished, and in mild distress. HEAD: Normocephalic, atraumatic. CHEST: Clear to auscultation. ?No respiratory distress. ABDOMEN: Mild tenderness. Bowel sounds in all four quadrants. HEART: Regular rate and rhythm.? NEURO: ?Alert and oriented x3. Patient screened in triage and initial orders placed.? ?Additional care and disposition to be based upon?diagnostic testing and treatment. <RASHAAD Rondon - Last Filed: 01/01/25 15:55> Related Data Allergies/adverse reactions: Allergies Allergy/AdvReac Type Severity Reaction Status Date / Time No Known Allergies Allergy Verified 12/30/24 09:16 <RASHAAD Rondon - Last Filed: 01/01/25 15:55> Exam 2 Narrative: APPEARANCE: No apparent distress. Head: atraumatic. EYES: EOMI, NOSE: Atraumatic NECK: Trachea midline RESPIRATORY: No increased rate of breathing clear to auscultation CARDIOVASCULAR: patient listed is tachycardic in triage has a heart rate 86 during my evaluation ABDOMINAL: Non-distended soft nontender no guarding or rebound rectal exam: brown stool in the rectal vault, no hemorrhoids or fissures MUSCULOSKELETAl: No obvious deformities NEURO: Alert. Moving 4/4 extremities SKIN:: Warm, dry. Normal color PSYCHIATRIC: Normal affect <Adolfo Arora MD - Last Filed: 01/01/25 00:55> Course Vital Signs Vital signs: Vital Signs Pulse Rate 112 H 11/04/25 18:11 Respiratory Rate 20 12/31/24 18:11 Blood Pressure 137/96 H 12/31/24 18:11 Pulse Oximetry 99 12/31/24 18:11 Temperature 99 F 12/31/24 19:55 Pulse Rate 80 01/01/25 00:46 Respiratory Rate 20 01/01/25 00:46 Blood Pressure 138/86 01/01/25 00:46 Pulse Oximetry 97 01/01/25 00:46 <RASHAAD Rondon - Last Filed: 01/01/25 15:55> Vital Signs Pulse Rate 112 H 12/31/24 18:11 Respiratory Rate 20 12/31/24 18:11 Blood Pressure 137/96 H 12/31/24 18:11 Pulse Oximetry 99 12/31/24 18:11 Temperature 99 F 12/31/24 19:55 Pulse Rate 80 01/01/25 00:46 Respiratory Rate 20 01/01/25 00:46 Blood Pressure 138/86 01/01/25 00:46 Pulse Oximetry 97 01/01/25 00:46 <Adolfo Arora MD - Last Filed: 01/01/25 00:55> Medical Decision Making MDM Narrative Medical decision making narrative: -Course: 39-year-old female presenting with nausea vomiting diarrhea. A abdominal exam is benign. Tachycardic in triage but this normalized without intervention by time she got back to a room. Patient given symptomatic treatment including anti nausea meds, pain control and IV fluids. CT abdomen pelvis showed possible focal colitis of the ascending and transverse colon. Patient reports bloody stools although there is no blood on digital rectal exam. discuss the benefit like her of antibiotics the patient has opted for antibiotics. She will also be discharged with antiemetics and pain control. She has been encouraged to follow up at her GI appointment. Given return precautions. -DDX includes but is not limited to: Gastroenteritis colitis, viral syndrome, appendicitis, diverticulitis <Adolfo Arora MD - Last Filed: 01/01/25 00:55> Vital Signs Vital Signs: Vital Signs Pulse Rate 112 H 12/31/24 18:11 Respiratory Rate 20 12/31/24 18:11 Blood Pressure 137/96 H 12/31/24 18:11 Pulse Oximetry 99 12/31/24 18:11 Temperature 99 F 12/31/24 19:55 Pulse Rate 80 01/01/25 00:46 Respiratory Rate 20 01/01/25 00:46 Blood Pressure 138/86 01/01/25 00:46 Pulse Oximetry 97 01/01/25 00:46 <RASHAAD Rondon - Last Filed: 01/01/25 15:55> Vital Signs Pulse Rate 112 H 12/31/24 18:11 Respiratory Rate 20 12/31/24 18:11 Blood Pressure 137/96 H 12/31/24 18:11 Pulse Oximetry 99 12/31/24 18:11 Temperature 99 F 12/31/24 19:55 Pulse Rate 80 01/01/25 00:46 Respiratory Rate 20 01/01/25 00:46 Blood Pressure 138/86 01/01/25 00:46 Pulse Oximetry 97 01/01/25 00:46 <Adolfo Arora MD - Last Filed: 01/01/25 00:55> Lab Data Result diagrams: 12/31/24 18:13 12/31/24 22:13 <RASHAAD Rondon - Last Filed: 01/01/25 15:55> Labs: Lab Results 12/31/24 12/31/24 12/31/24 Range/Units 18:13 22:03 22:13 WBC 5.0 (4.5-10.0) K/mm3 RBC 4.79 (4.2-5.4) M/mm3 Hgb 13.7 (12.0-15.0) g/dL Hct 41.7 (37.0-47.0) % MCV 87.1 (80-100) fl MCH 28.6 (26-34) pg MCHC 32.9 (32-36) g/dl RDW 14.6 H (11.5-14.5) % Plt Count 198 (150-375) k/mm3 MPV 11.2 H (7.4-10.4) fl Immature Gran % (Auto) 0.2 (0-0.5) % Neut % (Auto) 83.0 H (45.5-73.1) % Lymph % (Auto) 9.3 L (18.3-44.2) % [place] % (Auto) 6.9 (2.6-8.5) % Eos % (Auto) 0.0 (0-4.4) % Baso % (Auto) 0.6 (0.2-1.2) % Lymph # (Auto) 0.47 L (0.9-3.2) K/mm3 [place] # (Auto) 0.4 (0.1-0.6) K/mm3 Eos # (Auto) 0.0 (0-0.3) K/mm3 Baso # (Auto) 0.0 (0.0-0.1) K/mm3 Abs Immat Gran (auto) 0.01 (0.00-0.031) K/mm3 Absolute Neuts (auto) 4.2 (1.3-6.7) K/mm3 Absolute Nucleated RBC 0.000 (0.0-0.012) K/mm3 Nucleated RBC % 0.0 (0.0-0.2) % Sodium 130 L (137-145) mmol/L Potassium 3.3 L (3.4-5.0) mmol/L Chloride 99 (98-107) mmol/L Carbon Dioxide 24 (22-30) mmol/L Anion Gap 7 (4-12) mmol/L BUN 6 L (7-17) mg/dL Creatinine 0.60 L (0.7-1.0) mg/dL Estim Creat Clear Calc Not Reportable Estimated GFR > 60 (59 - ) Glucose 108 (65-110) mg/dL Calcium 8.5 (8.4-10.2) mg/dL Total Bilirubin 0.5 (0.2-1.3) mg/dL AST 93 H (14-36) U/L ALT 69 H (6-35) U/L Alkaline Phosphatase 67 (38-126) U/L Total Protein 6.6 (6.3-8.2) g/dL Albumin 3.8 (3.5-5.1) g/dL Lipase 369 H (23-300) U/L Urine Color Dark yellow (Yellow) Urine Appearance Cloudy H (Clear) Urine pH 5.5 (5.0-9.0) Ur Specific [place] 1.025 (1.001-1.035) Urine Protein 1+ H (Negative) mg/dL Urine Glucose (UA) Negative (Negative) mg/dL Urine Ketones Trace H (Negative) mg/dL Ur Blood (Man) Negative (Negative) Urine Nitrate Negative (Negative) Urine Bilirubin 1+ H (Negative) Urine Urobilinogen 1.0 (<2.0) mg/dL Leukocyte Esterase Rfl Trace H (Negative) DENNIS/UL Urine RBC 0-2 (0-2) /hpf Urine WBC 0-5 (0-3) /hpf Ur Squamous Epith Cells Moderate (Few) /hpf Urine Bacteria None seen /hpf Urine Casts 0-2 POC Urine HCG, Qual (Negative) 12/31/24 Range/Units 22:34 WBC (4.5-10.0) K/mm3 RBC (4.2-5.4) M/mm3 Hgb (12.0-15.0) g/dL Hct (37.0-47.0) % MCV (80-100) fl MCH (26-34) pg MCHC (32-36) g/dl RDW (11.5-14.5) % Plt Count (150-375) k/mm3 MPV (7.4-10.4) fl Immature Gran % (Auto) (0-0.5) % Neut % (Auto) (45.5-73.1) % Lymph % (Auto) (18.3-44.2) % [place] % (Auto) (2.6-8.5) % Eos % (Auto) (0-4.4) % Baso % (Auto) (0.2-1.2) % Lymph # (Auto) (0.9-3.2) K/mm3 [place] # (Auto) (0.1-0.6) K/mm3 Eos # (Auto) (0-0.3) K/mm3 Baso # (Auto) (0.0-0.1) K/mm3 Abs Immat Gran (auto) (0.00-0.031) K/mm3 Absolute Neuts (auto) (1.3-6.7) K/mm3 Absolute Nucleated RBC (0.0-0.012) K/mm3 Nucleated RBC % (0.0-0.2) % Sodium (137-145) mmol/L Potassium (3.4-5.0) mmol/L Chloride (98-107) mmol/L Carbon Dioxide (22-30) mmol/L Anion Gap (4-12) mmol/L BUN (7-17) mg/dL Creatinine (0.7-1.0) mg/dL Estim Creat Clear Calc Estimated GFR (59 - ) Glucose (65-110) mg/dL Calcium (8.4-10.2) mg/dL Total Bilirubin (0.2-1.3) mg/dL AST (14-36) U/L ALT (6-35) U/L Alkaline Phosphatase (38-126) U/L Total Protein (6.3-8.2) g/dL Albumin (3.5-5.1) g/dL Lipase (23-300) U/L Urine Color (Yellow) Urine Appearance (Clear) Urine pH (5.0-9.0) Ur Specific [place] (1.001-1.035) Urine Protein (Negative) mg/dL Urine Glucose (UA) (Negative) mg/dL Urine Ketones (Negative) mg/dL Ur Blood (Man) (Negative) Urine Nitrate (Negative) Urine Bilirubin (Negative) Urine Urobilinogen (<2.0) mg/dL Leukocyte Esterase Rfl (Negative) DENNIS/UL Urine RBC (0-2) /hpf Urine WBC (0-3) /hpf Ur Squamous Epith Cells (Few) /hpf Urine Bacteria /hpf Urine Casts POC Urine HCG, Qual Negative (Negative) <RASHAAD Rondon - Last Filed: 01/01/25 15:55> Lab Results 12/31/24 12/31/24 12/31/24 Range/Units 18:13 22:03 22:13 WBC 5.0 (4.5-10.0) K/mm3 RBC 4.79 (4.2-5.4) M/mm3 Hgb 13.7 (12.0-15.0) g/dL Hct 41.7 (37.0-47.0) % MCV 87.1 (80-100) fl MCH 28.6 (26-34) pg MCHC 32.9 (32-36) g/dl RDW 14.6 H (11.5-14.5) % Plt Count 198 (150-375) k/mm3 MPV 11.2 H (7.4-10.4) fl Immature Gran % (Auto) 0.2 (0-0.5) % Neut % (Auto) 83.0 H (45.5-73.1) % Lymph % (Auto) 9.3 L (18.3-44.2) % [place] % (Auto) 6.9 (2.6-8.5) % Eos % (Auto) 0.0 (0-4.4) % Baso % (Auto) 0.6 (0.2-1.2) % Lymph # (Auto) 0.47 L (0.9-3.2) K/mm3 [place] # (Auto) 0.4 (0.1-0.6) K/mm3 Eos # (Auto) 0.0 (0-0.3) K/mm3 Baso # (Auto) 0.0 (0.0-0.1) K/mm3 Abs Immat Gran (auto) 0.01 (0.00-0.031) K/mm3 Absolute Neuts (auto) 4.2 (1.3-6.7) K/mm3 Absolute Nucleated RBC 0.000 (0.0-0.012) K/mm3 Nucleated RBC % 0.0 (0.0-0.2) % Sodium 130 L (137-145) mmol/L Potassium 3.3 L (3.4-5.0) mmol/L Chloride 99 (98-107) mmol/L Carbon Dioxide 24 (22-30) mmol/L Anion Gap 7 (4-12) mmol/L BUN 6 L (7-17) mg/dL Creatinine 0.60 L (0.7-1.0) mg/dL Estim Creat Clear Calc Not Reportable Estimated GFR > 60 (59 - ) Glucose 108 (65-110) mg/dL Calcium 8.5 (8.4-10.2) mg/dL Total Bilirubin 0.5 (0.2-1.3) mg/dL AST 93 H (14-36) U/L ALT 69 H (6-35) U/L Alkaline Phosphatase 67 (38-126) U/L Total Protein 6.6 (6.3-8.2) g/dL Albumin 3.8 (3.5-5.1) g/dL Lipase 369 H (23-300) U/L Urine Color Dark yellow (Yellow) Urine Appearance Cloudy H (Clear) Urine pH 5.5 (5.0-9.0) Ur Specific [place] 1.025 (1.001-1.035) Urine Protein 1+ H (Negative) mg/dL Urine Glucose (UA) Negative (Negative) mg/dL Urine Ketones Trace H (Negative) mg/dL Ur Blood (Man) Negative (Negative) Urine Nitrate Negative (Negative) Urine Bilirubin 1+ H (Negative) Urine Urobilinogen 1.0 (<2.0) mg/dL Leukocyte Esterase Rfl Trace H (Negative) DENNIS/UL Urine RBC 0-2 (0-2) /hpf Urine WBC 0-5 (0-3) /hpf Ur Squamous Epith Cells Moderate (Few) /hpf Urine Bacteria None seen /hpf Urine Casts 0-2 POC Urine HCG, Qual (Negative) 12/31/24 Range/Units 22:34 WBC (4.5-10.0) K/mm3 RBC (4.2-5.4) M/mm3 Hgb (12.0-15.0) g/dL Hct (37.0-47.0) % MCV (80-100) fl MCH (26-34) pg MCHC (32-36) g/dl RDW (11.5-14.5) % Plt Count (150-375) k/mm3 MPV (7.4-10.4) fl Immature Gran % (Auto) (0-0.5) % Neut % (Auto) (45.5-73.1) % Lymph % (Auto) (18.3-44.2) % [place] % (Auto) (2.6-8.5) % Eos % (Auto) (0-4.4) % Baso % (Auto) (0.2-1.2) % Lymph # (Auto) (0.9-3.2) K/mm3 [place] # (Auto) (0.1-0.6) K/mm3 Eos # (Auto) (0-0.3) K/mm3 Baso # (Auto) (0.0-0.1) K/mm3 Abs Immat Gran (auto) (0.00-0.031) K/mm3 Absolute Neuts (auto) (1.3-6.7) K/mm3 Absolute Nucleated RBC (0.0-0.012) K/mm3 Nucleated RBC % (0.0-0.2) % Sodium (137-145) mmol/L Potassium (3.4-5.0) mmol/L Chloride (98-107) mmol/L Carbon Dioxide (22-30) mmol/L Anion Gap (4-12) mmol/L BUN (7-17) mg/dL Creatinine (0.7-1.0) mg/dL Estim Creat Clear Calc Estimated GFR (59 - ) Glucose (65-110) mg/dL Calcium (8.4-10.2) mg/dL Total Bilirubin (0.2-1.3) mg/dL AST (14-36) U/L ALT (6-35) U/L Alkaline Phosphatase (38-126) U/L Total Protein (6.3-8.2) g/dL Albumin (3.5-5.1) g/dL Lipase (23-300) U/L Urine Color (Yellow) Urine Appearance (Clear) Urine pH (5.0-9.0) Ur Specific [place] (1.001-1.035) Urine Protein (Negative) mg/dL Urine Glucose (UA) (Negative) mg/dL Urine Ketones (Negative) mg/dL Ur Blood (Man) (Negative) Urine Nitrate (Negative) Urine Bilirubin (Negative) Urine Urobilinogen (<2.0) mg/dL Leukocyte Esterase Rfl (Negative) DENNIS/UL Urine RBC (0-2) /hpf Urine WBC (0-3) /hpf Ur Squamous Epith Cells (Few) /hpf Urine Bacteria /hpf Urine Casts POC Urine HCG, Qual Negative (Negative) <Adolfo Arora MD - Last Filed: 01/01/25 00:55> Discharge Plan Discharge Clinical Impression: Colitis <RASHAAD Rondon - Last Filed: 01/01/25 15:55> Patient Disposition: Home <RASHAAD Rondon - Last Filed: 01/01/25 15:55> Condition: Stable <RASHAAD Rondon - Last Filed: 01/01/25 15:55> Instructions: Antibiotic Form, Colitis (ED) <RASHAAD Rondon - Last Filed: 01/01/25 15:55> Additional Instructions: You were seen in the emergency department for abdominal pain. Please take ketorolac for pain. Use Reglan for nausea. Complete a course of Bactrim. Please follow-up with the GI physician you referred to on your previous visit. You develop new or worsening symptoms such as severe abdominal pain, inability to keep down liquids any new symptoms please return to the ED for re-evaluation. <RASHAAD Rondon - Last Filed: 01/01/25 15:55> Patient Language: Macedonian <RASHAAD Rondon - Last Filed: 01/01/25 15:55> Prescriptions: New ketorolac 10 mg tablet 10 mg PO Q8H 5 Days Qty: 15 5RF Rx Instructions: maximum total duration of 5 days from all oral, intranasal, or parenteral formulations metoclopramide HCl [Reglan] 10 mg tablet 10 mg PO Q6H PRN (Reason: nausea and vomiting) 7 Days Qty: 20 0RF sulfamethoxazole-trimethoprim 800-160 mg tablet 1 tablet PO Q12H 5 Days Qty: 10 0RF No Action ketorolac 10 mg tablet 10 mg PO Q8H PRN (Reason: pain) Qty: 15 0RF Rx Instructions: maximum total duration of 5 days from all oral, intranasal, or parenteral formulations doxycycline hyclate 100 mg capsule 100 mg PO BID Qty: 20 0RF fluticasone propionate [Flonase Allergy Relief] 50 mcg/actuation spray,suspension 2 spray intranasal DAILY Qty: 36.4 0RF Rx Instructions: administer into each nostril benzonatate 200 mg capsule 200 mg PO TID PRN (Reason: cough) Qty: 21 0RF dicyclomine 20 mg tablet 20 mg PO TID PRN (Reason: Abdominal Discomfort) Qty: 15 0RF ondansetron 4 mg tablet,disintegrating 4 mg PO Q8H PRN (Reason: nausea and vomiting) Qty: 15 0RF <RASHAAD Rondon - Last Filed: 01/01/25 15:55> Follow-up/Referrals: UNKNOWN,DOCTOR [Non-Staff] <RASHAAD Rondon - Last Filed: 01/01/25 15:55>
[2024-12-31] MEDS: ONDANSETRON HCL ODT 4 MG TABLET PO (17:59)
[2024-12-31 18:11] VITALS: BP 137/96; PULSE 112; RESP 20; O2SAT 99
[2024-12-31 18:43] LABS: Hematocrit 41.7 % (37.0-47.0); Hemoglobin 13.7 g/dL (12.0-15.0); Immature Granulocyte Percent A 0.2 % (0-0.5); Lymphocytes Absolute Auto 0.47 K/mm3 (0.9-3.2); Mean Corpuscular HGB Conc 32.9 g/dl (32-36); Mean Corpuscular Hemoglobin 28.6 pg (26-34); Mean Corpuscular Volume 87.1 fl (80-100); Nucleated Red Blood Cells Absolute Auto 0.000 K/mm3 (0.0-0.012); Nucleated Red Blood Cells Perc 0.0 % (0.0-0.2); Platelet Count Result 198 k/mm3 (150-375); Red Blood Count 4.79 M/mm3 (4.2-5.4); White Blood Count 5.0 K/mm3 (4.5-10.0)
[2024-12-31 19:55] VITALS: BP 127/92; PULSE 112; RESP 18; TEMP 37.2; O2SAT 99
--- OUTSIDE RECORDS SUMMARY | 2024-12-31 21:06 | XMS_ITS | Clinical Summary ---
Author Organization [facility] Address [address] [place] [address] Care Team Providers Care Water Treatment Operator Name Role Phone No, Physician Primary Care Provider [phone] Allergies No known active allergies Social History [...] age to complete this topic Care Teams Water Treatment Operator Relationship Specialty Start Date End Date No, Physician PCP - General 05/24/22
[2024-12-31] MEDS: LACTATED RINGERS 2,000 ML 999 ML IV CONT (21:53)
[2024-12-31] MEDS: DICYCLOMINE HCL INJ 20 MG/2 ML VIAL IM (21:53)
[2024-12-31] MEDS: PROCHLORPERAZINE EDISYLATE 10 MG/2 ML VIAL IV PUSH (21:54)
[2024-12-31] MEDS: KETOROLAC 15 MG/ML VIAL (*BKC) IV PUSH (21:54)
[2024-12-31 22:20] LABS: Add Urine Microscopic? YES; Appearance Urine Cloudy (Clear); Glucose Urine UA Negative (Negative); Leukocyte Esterase Ur Trace LEU/UL (Negative); Nitrate Urine Negative (Negative); Non Pathogenic Casts 0-2; Specific Grav Ur 1.025 (1.001-1.035)
[2024-12-31 22:29] LABS: Alanine Aminotransferase 69 U/L (6-35); Albumin Level 3.8 g/dL (3.5-5.1); Alkaline Phosphatase 67 U/L (38-126); Anion Gap 7 mmol/L (4-12); Aspartate Amino Transferase 93 U/L (14-36); Bilirubin,Total 0.5 mg/dL (0.2-1.3); Blood Urea Nitrogen 6 mg/dL (7-17); Calcium 8.5 mg/dL (8.4-10.2); Carbon Dioxide 24 mmol/L (22-30); Chloride 99 mmol/L (98-107); Estimated Glomerular Filt Rate > 60; Glucose 108 mg/dL (65-110); Lipase 369 U/L (23-300); Potassium 3.3 mmol/L (3.4-5.0); Sodium 130 mmol/L (137-145); Total Protein 6.6 g/dL (6.3-8.2)
[2024-12-31 22:35] LABS: BEDSIDEPREGUCG Negative (Negative)
[2025-01-01] VITALS (8 sets, daily range): BP systolic 132–138; BP diastolic 82–86; PULSE 69–80; RESP 14–24; O2SAT 96–99
[2025-01-01] MEDS: SULFAMETHOXAZOLE/TRIMETHOPRIM 800/160 MG DS TABLET 1 TAB PO (01:06)
== END 2025-01-01 01:12 | disposition home or self-care (01) ==
PROVIDERS: Emergency Provider Emergency Medicine
DX: K52.9 Noninfective gastroenteritis and colitis, unspecified (principal)
CPT/HCPCS: 36415; 74177; 80053; 81001; 81025; 83690; 85025; 96361; 96372; 96374; 96375; 99284; A9270; J0500; J0780; J1885; J7120; Q9967